=== PATIENT | female | born 1965 | race Caucasian/White ===

== ENCOUNTER → 2017-12-21 | Outpatient (CLI) | payer BC ==
[~2017-12-21] MED LIST: ACE3 PO; ACET-3017 PO; ACET500T68 PO; ASPI-757 PO; ASPI81TA94 PO; BCP; BENA20TA64 PO; CHRO1TAB3 PO; CRAN200C5 PO; DOCU100C49 PO; FEXO1TAB63 PO; MULT-912 PO; PEPP30SP PO; PEPPERMINT PO; SERT25TA87 PO
--- NOTE | 2017-12-21 11:05 | RADIOLOGY IMAGING REPORT ---
FACILITY: [facility] - [place] PATIENT NAME: Manasa Carranza : 1965 MR: [id number] V: [id number] EXAM DATE: ORDERING PHYSICIAN: TYLOR MARTINEZ TECHNOLOGIST: Location: [facility] Patient: Manasa Carranza : 1965 Visit/Account:[id number] Date of Sevice: 12/21/2017 DEXA Scan Clinical history: Postmenopausal. Comparison: None available. LUMBAR SPINE: The bone mineral density (BMD) measured from L1-L4 correlates with a Z-score 0.1 and a T-score of 0.2 which is Normal as defined by the World Health Organization. The corresponding risk of fracture in the lumbar spine is Not increased compared with a young adult reference population. HIP: Bone mineral density (BMD) measured in the Left total hip region correlates with a Z-score -0.8 and a T-score of 0.8 which is Normal as defined by the World Health Organization. The corresponding risk of fracture in the hip is 1-2 times increased compared with a young adult reference population. T s core left femoral neck -1.5 Bone mineral density (BMD) measured in the Femoral Neck region measures 0.827 g/cm2. Impression: 1. Lumbar spine: Normal. 2. Left Hip: Normal. 3. Femoral Neck: Bone Mineral Density is 0.827 g/cm2 The next DEXA scan of this patient should include the following sites: L1-L4 and the left hip. FRAX? WHO Fracture Risk Assessment Tool link: <http://www.shef.ac.uk/FRAX/tool.jsp?locationValue=9> PLEASE NOTE: 1) The World Health Organization defines low BMD as follows: T-score Normal > -1 Osteopenia < -1 and > -2.5 Osteoporosis < -2.5 without fractures Established osteoporosis < -2.5 with fractures 2) In general, you may wish to consider: Diagnosis Treatment Follow-up DEXA Normal BMD Prevention 2-3 years Osteopenia Prevention/therapy 1-2 years Osteoporosis Therapy Yearly 3) Fracture risk estimated from the T-score is more accurate for vertebral fractures (often spontane ous) than for hip fractures. Report Dictated By: Unique Moeller MD at 12/21/2017 10:33 AM Report E-Signed By: Unique Moeller MD at 12/21/2017 11:01 AM WSN:[email or web address]
--- NOTE | 2017-12-21 11:27 | RADIOLOGY IMAGING REPORT ---
FACILITY: [facility] PATIENT NAME: Manasa Carranza : 1965 MR: [id number] V: [id number] EXAM DATE: ORDERING PHYSICIAN: TYLOR MARTINEZ TECHNOLOGIST: Location: [facility] Patient: Manasa Carranza : 1965 Visit/Account:[id number] Date of Sevice: 12/21/2017 HAND COMPLETE LEFT Provided history: Pain Additional pertinent history: none Four views obtained COMPARISON STUDIES: No relevant priors FINDINGS: Acute osseous and soft tissue findings: None Chronic osseous and soft tissue findings: Mild fusiform swelling noted about the proximal interphala ngeal joints of digits 2 and 3. No significant periarticular demineralization. Alignment is normal. There is normal preservation of radiocarpal, intercarpal, carpo-metacarpal units joints. There is moderate narrowing of the first IP joint and the second through fifth proximal interphalange al joints with moderate-sized marginal spurs at the second and third proximal interphalangeal joints. There is additional advanced narrowing of the third distal interphalangeal joint with moderate-sized marginal spurs with lesser degrees of narrowing and spurring involving the second, fourth and fifth d istal interphalangeal joints. There is no erosive disease. Lesions: None significant IMPRESSION: Moderate degenerative osteoarthritis. No signs of inflammatory arthritis. Report Dictated By: Mando El MD at 12/21/2017 11:13 AM Report E-Signed By: Mando El MD at 12/21/2017 11:23 AM WSN:[email or web address]
== END ==
LOC: RAD 02:41
PROVIDERS: ATTEND Emergency Medicine
DX: M19.042 Primary osteoarthritis, left hand (principal); Z78.0 Asymptomatic menopausal state
CPT/HCPCS: 77080

== ENCOUNTER → 2018-02-08 | Outpatient (CLI) | payer BC ==
[~2018-02-08] MED LIST changes: +CIPR-344 PO; +DICL100G39 TOP
== END ==
LOC: LAB 13:43
PROVIDERS: ATTEND Emergency Medicine
DX: N39.0 Urinary tract infection, site not specified (principal); M19.90 Unspecified osteoarthritis, unspecified site
CPT/HCPCS: 36415; 81001; 86140; 86200; 86430; 87088

== ENCOUNTER → 2018-02-14 | Outpatient (CLI) | payer BC | LOC: LAB 10:47 | PROVIDERS: ATTEND Emergency Medicine | DX: R30.0 Dysuria (principal) | CPT/HCPCS: 81001; 87088 ==

== ENCOUNTER → 2018-06-16 | Outpatient (CLI) | payer BC ==
[~2018-06-16] MED LIST changes: +AZIT-1 PO
== END ==
LOC: LAB 09:08
PROVIDERS: ATTEND Emergency Medicine
DX: N39.0 Urinary tract infection, site not specified (principal); B96.89 Other specified bacterial agents as the cause of diseases classified elsewhere
CPT/HCPCS: 81001; 87088

== ENCOUNTER → 2018-07-03 | Outpatient (CLI) | payer BC ==
--- NOTE | 2018-07-03 10:24 | RADIOLOGY IMAGING REPORT ---
[place] [facility] [place] Manasa Carranza : 1965 MR: [id number] V: [id number] EXAM DATE: ORDERING PHYSICIAN: BEBETO MO TECHNOLOG[place] [facility] [place]ran[place] : 1965 Visit/Account:[id number] Date of Sevice: 07/03/2018 KIDNEYS EXAMINATION: Renal ultrasound. History: Hematuria, flank pain, UTI COMPARISON STUDIES: FINDINGS: Kidneys: Right kidney- 11.1 x 5.4 x 4.7 cm Left kidney- 11.2 x 6 x 4.4 cm. There is a 2.7 cm cyst lower pole of the left kidney Uniform and symmetric blood flow in each kidney by Doppler ultrasound. Hydronephrosis: none Bladder: Prevoid volume 659 mL. Post void residual 69.5 mL. Bilateral ureteral jets are present. Abdominal aorta and IVC: Aorta and IVC are patent by Doppler ultrasound. IMPRESSION: Post void bladder residual of 69.5 mL. 2.7 cm cyst lower pole the left kidney Report Dictated By: Unique Moeller MD at 07/03/2018 10:17 AM Report E-Signed By: Unqiue Moeller MD at 07/03/2018 10:19 AM WSN:[email or web address]
== END ==
LOC: US 01:12
PROVIDERS: ATTEND Physician Assistant
DX: N28.1 Cyst of kidney, acquired (principal); R33.9 Retention of urine, unspecified
CPT/HCPCS: 76705